=== PATIENT | male | born 2000 | race Caucasian/White ===

== ENCOUNTER 2022-02-04 09:28 | Emergency (ER) | payer OTHER ==
[~2022-02-04] VITALS: Ht 172.7 cm; Wt 79.4 kg
[2022-02-04 09:51] VITALS: BP 118/65
[2022-02-04] MEDS ORDERED: AZIT250T PO ×2 (10:12→10:24)
[2022-02-04] MEDS ORDERED: IBUP-1957 PO ×2 (10:12→10:24)
--- NOTE | 2022-02-04 10:19 | NUR ---
strep swab collected and sent to lab.
--- NOTE | 2022-02-04 10:28 | NUR ---
Patient discharged to home in stable condition. Written and verbal after care instructions given. Patient verbalizes understanding of instruction.
== END 2022-02-04 10:28 | disposition home or self-care (01) ==
LOC: ER 09:40
DX: J03.90 Acute tonsillitis, unspecified (principal); Z88.0 Allergy status to penicillin; Z88.1 Allergy status to other antibiotic agents; Z79.899 Other long term (current) drug therapy
CPT/HCPCS: 86403-TC; 87070-TC